=== PATIENT | female | born 1955 | race Caucasian/White ===

== ENCOUNTER 2017-06-07 17:12 | Emergency (ER) | payer OTHER ==
[~2017-06-07] VITALS: Ht 160 cm; Wt 92.0 kg
[2017-06-07 19:58] LABS: HEMATOCRIT 42.9 % (36.0-46.0); HEMOGLOBIN 14.3 G/DL (11.9-15.5); MCH 29.7 PG (29.0-34.0); MCHC 33.3 G/DL (30.0-36.0); MCV 89.2 FL (83-99); PLATELET COUNT 256 K/uL (156-360); RBC DIS.WIDTH-CV 12.7 % (11.8-14.6); RBC DIS.WIDTH-SD 41.9 % (39-53); RED BLOOD COUNT 4.81 M/uL (3.80-5.20)
[2017-06-07 20:09] LABS: CHLORIDE 107 mEq/L (99-109); POTASSIUM 3.7 mEq/L (3.7-5.4); SODIUM 141 mEq/L (136-147)
[2017-06-07 20:11] LABS: GLUCOSE 118 mg/dL (70-99)
[2017-06-07 20:15] LABS: CREATININE 0.8 mg/dL (0.6-1.3); GFR ESTIMATE (CALCULATED) > 59 mL/min/
[2017-06-07 20:16] LABS: UREA NITROGEN (BUN) 12 mg/dL (9-23)
[2017-06-07 21:31] VITALS: BP 190/101
== END 2017-06-07 21:32 | disposition home or self-care (01) ==
LOC: EME 17:12
PROVIDERS: Nurse Practitioner Family
DX: I10 Essential (primary) hypertension (principal); Z88.0 Allergy status to penicillin
CPT/HCPCS: 80048; 85027; 93005